=== PATIENT | female | born 1960 | race Caucasian/White ===

== ENCOUNTER → 2019-09-07 12:04 | Outpatient (CLI) | payer OTHER, SELFPAY ==
--- NOTE | ~2019-09-07 | MM_ITS ---
EXAMINATION: MM screening [facility] BI w phil HISTORY: Screening mammogram, family history of breast cancer in her mother. TECHNIQUE: Craniocaudal and mediolateral oblique 3-D tomosynthesis images were obtained and synthetic 2-D images were generated. CAD analysis was submitted and interpreted. COMPARISON: 11/09/2013, 10/21/2013, 12/24/2011 BREAST PARENCHYMAL COMPOSITION: There are scattered areas of fibroglandular density. FINDINGS: A right breast asymmetry on the craniocaudal view dated the posterior fibroglandular margin has an appearance similar to the 2011 comparison. There is no evidence of suspicious mass, calcifica tion, or architectural distortion to suggest malignancy in either breast. There has been no suspiciou s interval change. IMPRESSION: 1. No mammographic evidence of malignancy. 2. Recommend routine screening mammography in one year. BI-RADS Category 2: Benign finding(s). Reviewed, dictated and finalized at location A.
--- NOTE | ~2019-09-07 | XR_ITS ---
XR tibia fibula RT 2V DATE: 09/07/2019 13:06 INDICATION: Right leg pain TECHNIQUE: AP and lateral views COMPARISON: None FINDINGS: No fracture or dislocation, periosteal reaction or bone destruction. Normal alignment at th e knee and ankle joints. IMPRESSION: No significant abnormality of the tibia or fibula Reviewed, dictated and finalized at location A.
== END ==
PROVIDERS: PCP Physician Assistant; Visit Provider Physician Assistant
DX: M79.604 Pain in right leg (principal); Z12.31 Encounter for screening mammogram for malignant neoplasm of breast
CPT/HCPCS: 73590; 77063; 77067

== ENCOUNTER 2020-05-09 10:16 | Outpatient (CLI) | payer OTHER, SELFPAY | END 2020-05-09 10:17 | disposition home or self-care (01) | LOC: ANHCOVIDVC 10:16 | PROVIDERS: PCP Physician Assistant | DX: Z23 Encounter for immunization (principal) | CPT/HCPCS: 0001A; 91300 ==

== ENCOUNTER 2020-05-30 13:02 | Outpatient (CLI) | payer OTHER, SELFPAY | END 2020-05-30 13:03 | disposition home or self-care (01) | LOC: ANHCOVIDVC 13:02 | PROVIDERS: PCP Physician Assistant | DX: Z23 Encounter for immunization (principal) | CPT/HCPCS: 0002A; 91300 ==

== ENCOUNTER 2020-09-07 10:17 | Outpatient (CLI) | payer OTHER, SELFPAY ==
--- NOTE | ~2020-09-07 | US_ITS ---
EXAMINATION: US venous doppler LE RT DATE: 09/07/2020 10:40 INDICATION: Right lower limb pain. TECHNIQUE: Grayscale ultrasound images without and with compression and Doppler ultrasound images of the right lower extremity veins were obtained. COMPARISON: None. FINDINGS: The visualized portions of right common femoral vein, profunda (deep) femoral vein, femoral vein, pop liteal vein, peroneal veins, posterior tibial veins, and greater saphenous vein outflow are patent. IMPRESSION: 1. No deep venous thrombosis. Reviewed, dictated and finalized at location A.
== END 2020-09-07 10:18 | disposition home or self-care (01) ==
LOC: ANHIMG 10:22
PROVIDERS: PCP Physician Assistant; Visit Provider Physician Assistant
DX: M79.604 Pain in right leg (principal)
CPT/HCPCS: 93971

== ENCOUNTER → 2021-03-02 11:32 | Outpatient (CLI) | payer OTHER, SELFPAY ==
--- NOTE | ~2021-03-02 | MM_ITS ---
EXAMINATION: MM screening [facility] BI w phil HISTORY: Screening mammogram, family history of breast cancer in her mother. TECHNIQUE: Craniocaudal and mediolateral oblique 3-D tomosynthesis images were obtained and synthetic 2-D images were generated. CAD analysis was submitted and interpreted. COMPARISON: 09/07/2019, 11/09/2013, 10/21/2013 BREAST PARENCHYMAL COMPOSITION: There are scattered areas of fibroglandular density. FINDINGS: RIGHT BREAST: Focal asymmetry is present in the middle third of the central breast. LEFT BREAST: There is no evidence of suspicious mass, calcification, or architectural distortion to s uggest malignancy. There has been no significant interval change. IMPRESSION: 1. Focal asymmetry of the right breast. 2. Additional mammographic views and possible breast ultrasound are recommended. BI-RADS Category 0: Incomplete: Needs additional imaging evaluation. Reviewed, dictated and finalized at location A. 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 Focal asymmetry of the right breast. 2. Additional mammographic views and possible breast ultrasound are recommended . BI-RADS Category 0: Incomplete: Needs additional imaging evaluation.
== END ==
PROVIDERS: PCP Internal Medicine; Visit Provider Obstetrics & Gynecology
DX: Z12.31 Encounter for screening mammogram for malignant neoplasm of breast (principal); R92.8 Other abnormal and inconclusive findings on diagnostic imaging of breast
CPT/HCPCS: 77063; 77067

== ENCOUNTER → 2021-03-21 08:16 | Outpatient (CLI) | payer OTHER, SELFPAY ==
--- NOTE | ~2021-03-21 | MMUS_ITS ---
EXAMINATION: MM diagnostic [facility] RT w phil, US breast RT limited HISTORY: Focal asymmetry of the right breast on screening mammogram TECHNIQUE: Additional 3-D tomosynthesis images of the right breast were performed and synthetic 2-D i mages were generated. CAD analysis was submitted and interpreted. High resolution limited right breas t ultrasound was performed. COMPARISON: 03/02/2021, 09/07/2019, 10/21/2013 BREAST PARENCHYMAL COMPOSITION: There are scattered areas of fibroglandular density. FINDINGS: MAMMOGRAPHIC FINDINGS: There is a persistent focal asymmetry in the middle third of the slightly lower breast the 6:00 locat ion 4 cm from the nipple. There is also subtle associated architectural distortion. ULTRASOUND: There is a 9 mm x 5 irregular, parallel, hypoechoic mass with angular margins at the 6:00 location 2 cm from the nipple. No definite posterior features or internal vascularity are identified. A 4 mm cys t is noted the 12:00 location near the nipple. IMPRESSION: 1. Indeterminate right breast mass at the 6:00 location. 2. Ultrasound-guided biopsy is recommended. BI-RADS category 4, suspicious findings. Reviewed, dictated and finalized at location A. 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 Indeterminate right breast mass at the 6:00 location. 2. Ultrasound-guided biopsy is recommended. BI-RADS category 4, suspicious findings.
== END ==
PROVIDERS: PCP Internal Medicine; Visit Provider Obstetrics & Gynecology
DX: R92.8 Other abnormal and inconclusive findings on diagnostic imaging of breast (principal)
CPT/HCPCS: 76642; 77061; 77065; G0279

== ENCOUNTER 2021-04-11 08:44 | Outpatient (CLI) | payer OTHER, SELFPAY ==
--- NOTE | ~2021-04-11 | US_ITS ---
Consultation US 04/11/2021 09:43 Indication: Abnormal mass seen on recent examination. Biopsy requested. Procedure: High-resolution Limited ultrasound of the right breast in the area of previous sonographic abnormality. Comparison: Ultrasound dated 03/21/2021 Findings: At 6:00, 2 cm from the nipple, there are a cluster of mildly dilated ducts. No suspicious m asses to suggest malignancy. Biopsy canceled. Short-term follow-up ultrasound in 6 months recommended . Impression: 1: Probable benign cluster of mildly dilated ducts of the right breast at the 6:00 position correspon ding to the previous sonographic abnormality. BI-RADS CATEGORY 3-PROBABLY BENIGN FINDING RECOMMENDATION: Six-month follow-up Limited right breast ultrasound recommended. Reviewed, dictated and finalized at location A. EXECUTIVE Impression: 1: Probable benign cluster of mildly dilated ducts of the right breast at the 6 :00 position corresponding to the previous sonographic abnormality. BI-RADS CATEGORY 3-PROBABLY BENIGN FINDING RECOMMENDATION: Six-month follow-up Limited right breast ultrasound recommended .
== END 2021-04-11 08:45 | disposition home or self-care (01) ==
PROVIDERS: PCP Internal Medicine; Visit Provider Surgery
DX: R92.8 Other abnormal and inconclusive findings on diagnostic imaging of breast (principal)
CPT/HCPCS: 99199

== ENCOUNTER 2021-12-07 11:06 | Outpatient (CLI) | payer OTHER, SELFPAY ==
--- NOTE | ~2021-12-07 | US_ITS ---
US breast RT limited 12/07/2021 11:33 Indication: Follow-up right breast mass Procedure: High-resolution Limited ultrasound of the right breast Comparison: Ultrasound dated 03/21/2021 Findings: At 6:00, 2 cm from the nipple, there is an oval hypoechoic mass with parallel orientation, no significant posterior features and no internal vascularity. This mass measures 6 x 6 x 5 mm compar ed with 9 x 7 x 6 mm on prior examination. No other discrete mass identified. Impression: 1: Slightly decreased size of hypoechoic right breast mass measuring 6 mm maximum dimension. BI-RADS CATEGORY 3-PROBABLY BENIGN FINDING RECOMMENDATION: Six-month follow-up diagnostic bilateral mammogram and limited right breast ultrasoun d recommended. Reviewed, dictated and finalized at location A. Impression: 1: Slightly decreased size of hypoechoic right breast mass measuring 6 mm maxim um dimension. BI-RADS CATEGORY 3-PROBABLY BENIGN FINDING RECOMMENDATION: Six-month follow-up diagnostic bilateral mammogram and limited right breast ultrasound recommended.
== END 2021-12-07 11:07 | disposition home or self-care (01) ==
PROVIDERS: PCP Internal Medicine; Visit Provider Surgery
DX: R92.8 Other abnormal and inconclusive findings on diagnostic imaging of breast (principal); N63.15 Unspecified lump in the right breast, overlapping quadrants
CPT/HCPCS: 76642

== ENCOUNTER 2022-07-09 11:09 | Outpatient (CLI) | payer OTHER, SELFPAY ==
--- NOTE | ~2022-07-09 | MMUS_ITS ---
EXAMINATION: MM diagnostic [facility] BI w phil, US breast RT limited HISTORY: Six-month follow-up for probably benign right breast mass TECHNIQUE: Craniocaudal, mediolateral, and mediolateral oblique 3-D tomosynthesis images of the riley ts were performed and synthetic 2-D images were generated. CAD analysis was submitted and interpreted . High resolution limited right breast ultrasound was performed. COMPARISON: 12/07/2021, 03/21/2021, 03/02/2021, 09/07/2019 BREAST PARENCHYMAL COMPOSITION: There are scattered areas of fibroglandular density. FINDINGS: MAMMOGRAPHIC FINDINGS: Right breast: There is a persistent mass in the middle third of the lower breast at the 6:00 location , 4 cm from the nipple measuring approximately 8 mm and with indistinct margins. Left breast: No suspicious mass, calcification, or architectural distortion are identified to suggest malignancy. There has been no suspicious interval change. ULTRASOUND: There is a 9 mm x 5 mm hypoechoic mass with no posterior features or internal vascularity at the 2 6: 00 location, 2 cm from the nipple. The mass appears to demonstrate angular margins. IMPRESSION: 1. Indeterminate right breast mass with sonographically suspicious interval change. 2. Ultrasound-guided biopsy is recommended. BI-RADS category 4, suspicious findings. Reviewed, dictated and finalized at location A. IMPRESSION: 1. Indeterminate right breast mass with sonographically suspicious interval gary nge. 2. Ultrasound-guided biopsy is recommended. BI-RADS category 4, suspicious findings.
== END 2022-07-09 11:10 | disposition home or self-care (01) ==
PROVIDERS: PCP Internal Medicine; Visit Provider Surgery
DX: R92.8 Other abnormal and inconclusive findings on diagnostic imaging of breast (principal)
CPT/HCPCS: 76642; 77062; 77066; G0279

== ENCOUNTER 2023-11-20 08:12 | Outpatient (CLI) | payer OTHER, SELFPAY ==
--- NOTE | ~2023-11-20 | XR_ITS ---
XR tibia fibula RT 2V Ordering provider: Baltazar Chaney APRN History: . PAIN IN ANTERIOR RT MIDDLE LOWER LEG. NKI . Comparison: September 07, 2019 FINDINGS: BONES: No acute fracture or dislocation. Possible loss of volume of the talus bone is not excluded Postoperative changes in the foot. JOINT SPACES: Normal. Possibility of loose body in the joint space is not excluded. SOFT TISSUES: Normal. IMPRESSION: No definite acute osseous abnormality right leg. Possible slight loss of the volume of the talus is not excluded. Possible loose body in the joint space. Further evaluation advised. Reviewed, dictated and finalized at location A.
== END 2023-11-20 08:13 | disposition home or self-care (01) ==
PROVIDERS: PCP Nurse Practitioner; Visit Provider Nurse Practitioner
DX: M79.604 Pain in right leg (principal)
CPT/HCPCS: 73590

== ENCOUNTER 2025-01-12 10:07 | Outpatient (CLI) | payer OTHER, SELFPAY ==
--- OUTSIDE RECORDS SUMMARY | 2019-09-06 23:00 | XMS_ITS | Encounter Summary ---
Author Organization [facility] Healthcare Address [address] [place] [address] Care Team Providers Care Finger Waver Name Role Phone Peña Lebron MD Primary Care Provider [phone] Reason for Visit * Diagnostic Imaging (Routine) - Closed Specialty Diagnoses / Procedures Referred By Contac t Referred To Contact Procedures Breast Imaging Screening Outside Reference Mao Paredes, [address] 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 Gender Identity Not on file Sexual Orientation Not on file Occupation Industry Job Start Date Job End Date Retired Not on file Not on file Not on file documented as of this encounter Functional Status * In the past year, patient experienced: Question Answer Date of Assessment Author One or more falls in the las t year 0 11/01/2022 11:13 AM Norma Jones RN Has trouble stepping up onto a curb 0 11/01/2022 11:13 AM Norma Jones RN Advised to use a cane or wal ker to get around safely 0 11/01/2022 11:13 AM Norma Jones RN Often has to kohli to the toilet 0 11:13 AM Norma Jones RN Feels unsteady when walking 0 11/01/2022 11 :13 AM Norma Jones RN Has lost some feeling in feet 0 11/01/2022 11:13 AM Norma Jones RN Steadies self on furniture while walking at home 0 11/01/2022 11:13 AM Saravanan Jones RN Takes medicine that makes him/her feel lightheaded or more tired than usual 0 11/01/2022 11:13 AM Saravanan Jones RN Worried about falling 0 11/01/2022 11:13 AM Norma Jones RN Takes medicine to sleep or improve mood 0 11/01/2022 11:13 AM Norma Jones RN Needs to push with hands whe n rising from a chair 0 11/01/2022 11:13 AM Norma Jones RN Often feels sad or depressed 0 11/01/2022 1 1:13 AM Norma Jones RN STEADI Score Total 0 11/01/2022 11:13 AM CD T Norma Álvarez RN * Difference in Last Two Forest Scores Answer Date of Assessment Author 2 10/07/2022 8:15 AM CDT Sophia Roldan RN * Question Answer Date of Assessment Author MAP (mmHg) 66 10/07/2022 9:00 AM CDT Aixafi tt, Sophia Kramer RN * Truong Fall Risk Question Answer Date of Assessment Author History of Falling 0 10/07/2022 8:18 AM CDT Sophia Roldan RN Secondary Diagnosis 15 10/07/2022 8:18 AM CD T Sophia Roldan RN Ambulatory Aids 0 10/07/2022 8:18 AM CDT Mo ffittSophia RN Intravenous Therapy/Heparin/Saline Lock 20 10/07/2022 8:18 AM CDT Sophia Roldan RN Gait/Transferring 0 10/07/2022 8:18 AM CDT Sophia Roldan RN Mental Status 0 10/07/2022 8:18 AM CDT Moff itt, Sophia Kramer RN Truong Fall Risk Score (Score >= 45 places fall precaution order) 35 10/07/2022 8:18 AM CDT Sophia Roldan RN Prior Fall Event (Autopopulated from EMR) None found 10/07/2022 8:18 AM CDT Rachell Roldan RN * Forest Scale Question Answer Date of Assessment Author Sensory Perceptions 4 10/07/2022 8:15 AM CD T Yuli, Sophia Kramer RN Moisture 4 10/07/2022 8:15 AM CDT Moffi tt, Sophia Kramer RN Activity 3 10/07/2022 8:15 AM CDT Aixafi tt, Sophia Kramer RN Mobility 3 10/07/2022 8:15 AM CDT Aixafi tt, Sophia Kramer RN Nutrition 3 10/07/2022 8:15 AM CDT Aixafi tt, Sophia Kramer RN Friction and Shear 3 10/07/2022 8:15 AM CDT Sophia Roldan RN Forest Scale Score 20 10/07/2022 8:15 AM CDT Sophia Roldan RN * Fall Risk Interventions Question Answer Date of Assessment Author All Low Fall Interventions Applied Yes 10/07/2022 8:18 AM Sophia Perez RN All Moderate Fall Interventions Applied No 10/07/2022 8:18 AM Sophia Perez RN All Moderate Fall Risk Interventions EXCEPT: Gait belt at bedside;PT eval requested or obtained;OT eval requested or obtained 10/07/2022 8:18 AM Sophia Perez RN Reason For Exception(s) PACU 10/07/2022 8:18 A M Sophia Perez RN * Alcohol Withdrawal BP Hierarchy Answer Date of Assessment Author 76 11/01/2022 11:09 AM Norma Jones RN * Pressure Injury Prevention Question Answer Date of Assessment Author Pressure Ulcer Prevention Interventions Keep skin clean and dry (Sensory Perception/Moisture ) 10/07/2022 8:15 AM Sophia Perez RN * AUDIT-C Score Answer Date of Assessment Author 2 11/01/2022 11:14 AM Norma Jones RN * Alcohol Use Question Answer Date of Assessment Author Q1: How often do you have a drink containing alcohol? 2-4 times a month 11/01/2022 11:14 AM Norma Jones RN Q2: How many drinks containing alcohol do you have on a typical day when you are drinking? 1 or 2 11/01/2022 11:14 AM Norma Jones RN Q3: How often do you have six or more drinks on one occasion? Never 11/01/2022 11:14 AM Norma Jones RN * Integumentary Question Answer Date of Assessment Author Skin Color Appropriate for ethnicity 10/07/2022 8:15 AM Sophia Perez RN Skin Condition/Temp Warm;Dry 10/07/2022 8:15 AM Sophia Nielsen RN Skin Integrity Surgical incision 10/07/2022 8:15 AM Sophia Nielsen RN Integumentary (WDL) X 10/07/2022 8:15 AM CD T Yuli, Sophia Nia, RN Skin Location right breast 10/07/2022 8:15 AM Sophia Martinez RN * Wound (LDAs) Question Answer Date of Assessment Author Type of Wound (LDA) Surgical site 10/07/2022 8:15 AM Sophia Cm RN * Forest Scale Question Answer Date of Assessment Author Forest Scale Used Forest 10/07/2022 8:15 AM Sophia Perez RN * Question Answer Date of Assessment Author Bed In Lowest Position Yes 10/07/2022 8:18 AM Sophia Perez RN Bed Wheels Locked Yes 10/07/2022 8:18 AM Sophia Perez RN * Fall Risk Interventions Question Answer Date of Assessment Author All Low Fall Interventions Applied Yes 10/07/2022 8:18 AM Sophia Perez RN All Moderate Fall Interventions Applied No 10/07/2022 8:18 AM Sophia Perez RN All Moderate Fall Risk Interventions EXCEPT: Gait belt at bedside;PT eval requested or obtained;OT eval requested or obtained 10/07/2022 8:18 AM Sophia Perez RN Reason For Exception(s) PACU 10/07/2022 8:18 A M Sophia Perez RN * ADL Screening Question Answer Date of Assessment Author Hearing - Right Ear Functional 09/26/2022 1:24 PM Priscilla Patino RN Hearing - Left Ear Functional 09/26/2022 1:24 PM Priscilla Orellana RN * Assistive Devices Question Answer Date of Assessment Author Assistive Devices/DME Eyeglasses 09/26/2022 1:24 PM Priscilla Orellana RN documented as of this encounter Mental Status * Question Answer Entry Date Author Level of Consciousness Drowsy;Responds t o voice 10/07/2022 8:15 AM Sophia Perez RN Neuro (WDL) X 10/07/2022 8:15 AM Sophia Perez RN documented in this encounter Plan of Treatment Not on [...] only and have not been reviewed by [facility] Radiology. There will be no report generated by a [facility] Radiologist. Narrative [facility] - 07/23/2022 9:45 PM CDT EXAMINATION: Images For Reference Purposes Only us Mao Paredes DO IMG MAMMO PROCEDURES Fi nal Result [facility] documented in this encounter Visit Diagnoses Not on filedocumented in this encounter Care Teams Finger Waver Relationship Specialty Start Date End Date Peña Lebron MD [address] [facility] [address] [place] [address] PCP - General 01/14/17 11/19/23 documented as of this encounter
--- NOTE | ~2025-01-12 | DEXA_ITS ---
Bone Density Report Name: MARIELOS FLOR Age: 64 Sex: Female Ethnicity: White Date of : 1960 Indication: postmenopausal; screening for osteoporosis; height loss; cancer; Referring Provider: UNKNOWN, UNKNOWN Study: Bone densitometry was performed. Exam Date: January 12, 2025 Accession number: [id number] Bone Density: Region BMD T-score Z-score Classification AP Spine(L1-L4) 1.083 0.3 2.1 Normal Femoral Neck (Left) 0.772 -0.7 0.8 Normal Total Hip (Left) 1.065 1.0 2.2 Normal Femoral Neck (Right) 0.760 -0.8 0.7 Normal Total Hip (Right) 1.057 0.9 2.2 Normal Total Hip Mean 1.061 1.0 2.2 Normal World Health Organization criteria for BMD impression classify patients as: Normal (T-score at or above -1.0), Osteopenia (T-score between -1.0 and -2.5), or Osteoporosis (T-score at or below -2.5). 10-year Fracture Risk: FRAX not reported because: All T-scores for Spine Total, Hip Total, Femoral Neck at or above -1.0 Clinical Information Provided by Patient: Has the following medical conditions: Cancer Patient maximum height was 63.0 Menopause Age: 55 No regular weight bearing exercise Does not regularly consume dairy products Drinks caffeinated beverages Onset of menses at age 10 Number of children 1 Impression: The patient has normal bone mass. Discussion: BONE DENSITY IS ABOVE THE MINIMUM DESIRABLE LEVEL AT ALL SKELETAL SITES TESTED. This patient?s bone mineral density is above the minimum desirable level (T-score -1.0 or better) at all sites measured. The patient should follow a healthful lifestyle (good nutrition with adequate calcium and vitamin D, and appropriate weight-bearing exercise). Follow-Up: Consider repeating this study in 5 years or sooner if there is some new clinical indication. Reported by: MEGHAN on 01/12/2025 10:51:00 AM. Reviewed, dictated and finalized at location A.
--- OUTSIDE RECORDS SUMMARY | 2025-01-12 14:13 | XMS_ITS ---
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 Conte is a 58 year old woman who presents for follow up of essential tremor. She continues to have symptoms consistent with essential tremor with an action and postural tremor involving the hands and neck with no tremor at rest or bradykinesia. She has not had any interval worsening of her tremor and feels that her symptoms are adequately controlled on her current dose of Propranolol. Additionally, she is tolerating her current dose of Propranolol and reports no symptoms. -Continue Propranolol 80mg Extended Release Daily -She was counseled on medication side effects -Return to clinic in 12 months Current Treatment and Therapy Plans No current plan information found. Past Treatment and Therapy Plans No past plan information found. Radiation Treatments * Course [id number]/29/2022 - 12/20/2022 Treatment Period Energy Fraction Dose Fractions Total Dose Plans Planned PRNE_RT BRST 11/29/2022 - 12/20/2022 266 16 / 4,256 Reference Points Delivered PRNE RT BREAST 11/29/2022 - 12/20/2022 4,256
--- OUTSIDE RECORDS SUMMARY | 2025-01-12 14:13 | XMS_ITS | Clinical Summary ---
Author Organization [facility] Address [address] [place] [address] Care Team Providers Care Shotgun Shell Assembly Machine Adjuster Name Role Phone Jeramie Dudley MD Unavailable [phone] Ailyn Rogers MD Unavailable Emily Marin MD Unavailable [phone] Cailin Aly PhD Unavailable [phone] Soraya Brown NP Primary Care Provider [phone] Allergies No known active allergies Medications propranolol LA (INDERAL LA) 80 mg 24 hr capsule Take 1 capsule (80 mg total) by mouth daily 90 capsule 3 9 Active Additional Information Patient taking differently:80 mg oralEvery morning, Indications: Essential Tremor, Informant: Self, Reported on 09/26/2022 multivitamin capsuleIndicati ons:Vitamin Deficiency Prevention Take 1 capsule by mouth every morning Active ascorbic acid/vitamin E/biotin (HAIR, SKIN, NAILS WITH BIOTIN ORAL)Indication s:supplement Take 1 tablet by mouth every morning Active vitamin B complex capsuleIndicati ons:Vitamin Deficiency Prevention Take 1 capsule by mouth every morning Active Active Problems Problem Noted Date Diagnosed Date Radiotherapy follow-up examination 12/31/2022 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 Cancer Staging:Pathologic stage from 10/07/2022:Stage 0(pTis (DCIS), pN0, cM0, ER-, NE: Not Assessed, HER2: Not Assessed) - Signed [...] effects -Return to clinic in 12 months Immunizations Immunization Administration Dates Next Due Influenza, Quadrivalent, Namrata l Culture-based MDCK, Preservative Free, Antibiotic Free, Intramuscular 12/06/2020,12/10/2019 Influenza, Quadrivalent, Spl it, Preservative Free, Intramuscular 01/03/2022 Tdap 07/24/2014 ZOSTER Recombinant 04/17/2021,01/09/2021 Surgical History Surgery Date Site/Laterality Comments BUNIONECTOMY 02/24/2006 - 02/23/2007 Right BREAST BIOPSY 09/02/2022 Right COLONOSCOPY last one 2018 Medical History Medical History Date Comments Essential tremor Treated with pr opanolol Breast cancer (HCC) Family History Medical History Relation Name Comments Lung cancer Father Essential Tremor Maternal Grandfather Breast cancer Mother Essential Tremor Mother Parkinsonism Mother Family history of Parkinsonism - (Added by TW Conv) Anesthesia problems Neg Hx Relation Name Status Comments Father Maternal Grandfather Mother Social History Tobacco Use Types Packs/Day Years Used Date Smoking Tobacco: Former Cigarettes 0.5 27 1 986 - 2012 Passive Smoke Exposure: Past Smokeless Tobacco: Never Tobacco Cessation:Counseling Given: Not Answered Alcohol Use Standard Drinks/Week Comments Yes 2 [...] on file 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 Gender Identity Not on file Sexual Orientation Not on file Occupation Industry Job Start Date Job End Date Retired Not on file Not on file Not on file Obstetrics History Para Term AB IAB SAB Ectopic Multiple Livin g Live Births 1 1 Date Outcome GA Total Labor Labor/2nd/3rd Weight Sex Type Anes PTL Mariam A1 A5 Name Clin Para Last Filed Vital Signs Vital Sign Reading Time Taken Comments Blood Pressure 116/76 11/01/2022 11:09 AM CDT Pulse 60 11/01/2022 11:09 AM CDT Temperature 36.6 C (97.9 F) 11/01/2022 11:09 AM CDT Respiratory Rate 16 11/01/2022 11:09 AM CDT Oxygen Saturation 98% 10/07/2022 9:00 AM CDT Inhaled Oxygen Concentration - - Weight 60.8 kg (134 lb) 05/07/2024 10:59 AM CDT Height 154.9 cm (5' 0.98) 05/07/2024 10:59 AM C DT Body Mass Index 25.34 05/07/2024 10:59 AM CDT Plan of Treatment Health Maintenance Due Date Last Done Comments Cervical Cancer Screening 1960 Colon Cancer Screening-Colonoscopy 1960 Depression Screening 1960 Hepatitis C Screening 1960 Hepatitis B Screening 1978 Regular Well Visit/Exam 18-64 1978 DTaP/Tdap/Td Vaccine (2 - Td or Tdap) 07/24/2024 07/24/2014, 02/24/2011 Covid-19 Vaccine ( season) 2024 01/03/2022, 09/23/2021, 12/26/2020, Additional history exists Influenza Vaccine (#1) 2024 , 12/06/2020, 12/10/2019 Breast Cancer Screening-Mammogram 05/07/2025 05/07/2024, 05/06/2023 Zoster Vaccine Completed 04/17/2021, 01/09/2021 Pneumococcal vaccine <65 Aged Out No longer eligible based on patient's age to complete this topic Medical Devices Implanted Type Area Msw Device Identifier Shelf Expiration Date Model / Serial / Lot Bard Peripheral Vascular Ultraclip Bard 17ga 10cm 2 Trigger Permanent Ultrasound [id number] - [id number] Implanted:Qty: 1 on 09/02/2022 at [facility] Right: Breast Bard Peripheral Vascular [id number] / / [employer] Marker Tissue Needle Delivery Spiral Capped Seed Radiopaque Federal Java Developer Stainless Steel Low Nickel Sentimag [id number] - [id number] Implanted:Qty: 1 on 10/02/2022 by Rogelio Varner MD at [facility] [employer] [id number] / / Procedures Procedure Name Priority Date/Time Associated Diagnosis Comments DIAGNOSTIC MAMMOGRAM BILATERAL W KEVEN Schedule Routine, Read Routine (OP Routine) 05/07/2024 12:15 PM CDT Ductal carcinoma in situ (DCIS) of right breast from Last 3 Months or Most Recently Relevant to Health Maintenance Results * Diagnostic Mammogram Bilateral W Keven (05/07/2024 12:15 PM CDT) Anatomical Region Laterality Modality Breast Bilateral Mammography 05/07/2024 12:1 6 PM CDT Impressions 05/07/2024 12:16 PM CDT No mammographic evidence of malignancy OVERALL FINAL ASSESSMENT: BI-RADS Category 2: Benign. RECOMMENDATION: Annual diagnostic mammography is recommended. Electronically signed by: Britt Fuentes M.D. Narrative 05/07/2024 12:16 PM CDT EXAMINATION: BILATERAL DIGITAL DIAGNOSTIC MAMMOGRAM INCLUDING CAD AND BILATERAL DIGITAL BREAST TOMOSYNTHESIS HISTORY: 64-year-old female with history of RIGHT breast conservation therapy in 2022, no current breast complaints. COMPARISON: Multiple priors dating back to 09/07/2019 TECHNIQUE: Full field digital mammographic views of BOTH breasts were performed, including computer aided detection (CAD) and BILATERAL digital breast tomosynthesis (DBT). BREAST PARENCHYMAL COMPOSITION: There are scattered areas of fibroglandular density. MAMMOGRAM FINDINGS: There is no new suspicious abnormality within EITHER breast; the appearance of BOTH breasts is stable compared to prior exams. Treatment changes are stable within the RIGHT breast These findings were discussed with the patient by Dr. Fuentes. Procedure Note Britt Fuentes MD - 05/07/2024 EXAMINATION: BILATERAL DIGITAL DIAGNOSTIC MAMMOGRAM INCLUDING CAD AND BILATERAL DIGITAL BREAST TOMOSYNTHESIS HISTORY: 64-year-old female with history of RIGHT breast conservation therapy in 2022, no current breast complaints. COMPARISON: Multiple priors dating back to 09/07/2019 TECHNIQUE: Full field digital mammographic views of BOTH breasts were performed, including computer aided detection (CAD) and BILATERAL digital breast tomosynthesis (DBT). BREAST PARENCHYMAL COMPOSITION: There are scattered areas of fibroglandular density. MAMMOGRAM FINDINGS: There is no new suspicious abnormality within EITHER breast; the appearance of BOTH breasts is stable compared to prior exams. Treatment changes are stable within the RIGHT breast These findings were discussed with the patient by Dr. Fuentes. IMPRESSION: No mammographic evidence of malignancy OVERALL FINAL ASSESSMENT: BI-RADS Category 2: Benign. RECOMMENDATION: Annual diagnostic mammography is recommended. Electronically signed by: Britt Fuentes M.D. Emily Marin MD IMG MAMMO PROCEDURES Fi nal Result from Last 3 Months or Most Recently Relevant to Health Maintenance Insurance [facility] Care Teams Shotgun Shell Assembly Machine Adjuster Relationship Specialty Start Date End Date Soraya Brown NP [address] [address] PCP - General Nurse Practitioner 01/05/25 Jeramie Dudley MD [address] [place] [address] Resident Radiation Oncology 11/01/22 Ailyn Rogers MD [address] [place] [address] Radiation Oncologist Radiation Oncology 11/01/22 Emily Marin MD [address] [place] [address] Surgeon Surgical Oncology 11/01/22 Cailin Aly, PhD [address] [place] [address] Nurse Practitioner Radiation Oncology 12/31/22
== END 2025-01-12 10:08 | disposition home or self-care (01) ==
LOC: ANHFOHIMG 10:12
PROVIDERS: PCP Nurse Practitioner
DX: Z00.01 Encounter for general adult medical examination with abnormal findings (principal); Z13.820 Encounter for screening for osteoporosis; Z78.0 Asymptomatic menopausal state; Z13.220 Encounter for screening for lipoid disorders; Z13.21 Encounter for screening for nutritional disorder; M25.561 Pain in right knee; M25.562 Pain in left knee; G25.0 Essential tremor; F32.A Depression, unspecified; F02.A4 Dementia in other diseases classified elsewhere, mild, with anxiety; Z85.3 Personal history of malignant neoplasm of breast
CPT/HCPCS: 77080

== ENCOUNTER 2025-02-23 10:05 | Outpatient (CLI) | payer OTHER, SELFPAY ==
--- OUTSIDE RECORDS SUMMARY | 2019-09-06 23:00 | XMS_ITS | Encounter Summary ---
Author Organization [facility] Address [address] [place] [address] Care Team Providers Care Store Associate Name Role Phone Peña Lebron MD Primary Care Provider [phone] Reason for Visit * Diagnostic Imaging (Routine) - Closed Specialty Diagnoses / Procedures Referred By Contac t Referred To Contact Procedures Breast Imaging Screening Outside Reference Mao Paredes, [address] [facility] [address] [place] [address] Phone: tel: fax: Referral ID Status Reason Start Date Expiration Date Visits Re quested Visits Authorized [id number] Closed 07/23/2022 08/22/2023 1 1 Encounter Details Date Type Department Care Team (Late st Contact Info) Description 09/07/2019 Hospital Encounter [facility] [address] [place] [id number] Social History Tobacco Use Types Packs/Day Years Used Date Smoking Tobacco: Former Cigarettes 0.5 27 1 986 - 2012 Passive Smoke Exposure: Past Smokeless Tobacco: Never Alcohol Use Standard Drinks/Week Comments Yes 2 (1 standard drink = 0.6 oz pur e alcohol) AUDIT-C Answer Date Recorded Q1: How often do you have a drink containing alc ohol? 2-4 times a month 11/01/2022 Q2: How many drinks containi ng alcohol do you have on a typical day when you are drinking? 1 or 2 11/01/2022 Q3: How often do you have si x or more drinks on one occasion? Never 11/01/2022 Personal Safety Answer Date Recorded Have you ever been in or are you currently in a harmful physical or emotional relationship or is someone making you feel afraid or unsafe? 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 Gender Identity Not on file Sexual Orientation Not on file Occupation Industry Job Start Date Job End Date Retired Not on file Not on file Not on file documented as of this encounter Plan of Treatment Not on file documented as of this encounter Procedures Procedure Name Priority Date/Time Associated Diagnosis Comments BREAST IMAGING MG SCREENING OUTSIDE REFERENCE Routine 09/07/2019 12:00 AM CDT documented in this encounter Results * Breast Imaging Screening Outside Reference (09/07/2019 12:00 AM CDT) Impressions [facility] - 07/23/2022 9:45 PM CDT These images are for Reference purposes only and have not been reviewed by [facility] Radiology. There will be no report generated by a [facility] Radiologist. Narrative [facility] - 07/23/2022 9:45 PM CDT EXAMINATION: Images For Reference Purposes Only us Mao Paredes DO IMG MAMMO PROCEDURES Fi nal Result [facility] documented in this encounter Visit Diagnoses Not on filedocumented in this encounter Care Teams Store Associate Relationship Specialty Start Date End Date Peña Lebron MD [address] [facility] [address] [place] [address] PCP - General 01/14/17 11/19/23 documented as of this encounter
--- NOTE | ~2025-02-23 | MR_ITS ---
EXAMINATION: MR brain/brain stem wo/w con DATE: 02/23/2025 10:50 INDICATION: Essential tremor. TECHNIQUE: Magnetic resonance imaging (MRI) of the brain and brainstem was performed without and with 11 mL MultiHance intravenous contrast. COMPARISON: None. FINDINGS: There are scattered areas of nonspecific increased T2-weighted signal intensity in the cerebral white matter and payam, which is within normal limits for the patient's age. There is no intracranial hemorrhage, acute infarction, or abnormal intracranial mass lesion. The ventricles are normal in size. There is mucosal thickening in the paranasal sinuses. The orbits are normal. The mastoid air cells are normal. IMPRESSION: 1. Normal aging brain. Reviewed, dictated and finalized at location E. AGE AGENT SUPERVISOR IMPRESSION: 1. Normal aging brain.
--- OUTSIDE RECORDS SUMMARY | 2025-02-23 10:21 | XMS_ITS | Clinical Summary ---
Author Organization [facility] Address [address] [place] [address] Care Team Providers Care Safety Clothing And Equipment Developer Name Role Phone Jeramie Dudley MD Unavailable [phone] Ailyn Rogers MD Unavailable Emily Marin MD Unavailable [phone] Cailin Aly PhD Unavailable [phone] Soraya Brown NP Primary Care Provider [phone] Allergies No known active allergies Medications propranolol [...] from 10/07/2022:Stage 0(pTis (DCIS), pN0, cM0, ER-, [place]: Not Assessed, HER2: Not Assessed) - Signed [...] effects -Return to clinic in 12 months Encounters Date Type Department Care Team Description 01/31/2025 Telephone [facility] [address] [place] [address] Francesca Dent NP from Last 3 Months Immunizations Immunization Administration Dates Next Due Influenza, [...] on file 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 Gender Identity Not on file Sexual Orientation [...] this topic Medical Devices Implanted Type Area Constitutional Law Professor Device Identifier Shelf Expiration Date Model / Serial / Lot Bard Peripheral Vascular Ultraclip Bard 17ga 10cm 2 Trigger Permanent Ultrasound [id number] - [id number] Implanted:Qty: 1 on 09/02/2022 at [facility] Right: Breast Bard Peripheral Vascular [id number] / / iBio Marker Tissue Needle Delivery Spiral Capped Seed Radiopaque Software Designer Stainless Steel Low Nickel Sentimag [id number] - [id number] Implanted:Qty: 1 on 10/02/2022 by Rogelio Varner MD at [facility] iBio [id number] / / Procedures Procedure Name Priority [...] diagnostic mammography is recommended. Electronically signed by: Megha Corrales 05/07/2024 12:16 PM CDT EXAMINATION: BILATERAL DIGITAL [...] Most Recently Relevant to Health Maintenance Insurance [facility] Care Teams Safety Clothing And Equipment Developer Relationship Specialty Start Date End Date Soraya Brown NP [facility] [address] [address] PCP - General Nurse Practitioner 01/05/25 Jeramie Dudley MD [address] [place] [address] Resident Radiation Oncology 11/01/22 Ailyn Rogers MD [address] [place] [address] Radiation Oncologist Radiation Oncology 11/01/22 Emily Marin MD [address] [place] [address] Surgeon Surgical Oncology 11/01/22 Cailin Aly, PhD [address] [place] [address] Nurse Practitioner Radiation Oncology 12/31/22
--- OUTSIDE RECORDS SUMMARY | 2025-02-23 10:21 | XMS_ITS ---
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
== END 2025-02-23 10:06 | disposition home or self-care (01) ==
PROVIDERS: PCP Nurse Practitioner
DX: G25.0 Essential tremor (principal); F02.A4 Dementia in other diseases classified elsewhere, mild, with anxiety
CPT/HCPCS: 70553; A9577